=== PATIENT | female | born 1985 | race Caucasian/White ===

== ENCOUNTER 2017-12-06 14:27 | Emergency (ER) | payer OTHER ==
[2017-12-06 14:35] VITALS: BP 132/92; PULSE 82; TEMP 99.3; BMI 32.1
--- NOTE | 2017-12-06 16:02 | PDOC ---
History of Present Illness - General Chief Complaint: Pain, Acute Stated Complaint: SWELLING,LT HAND Time Seen by Provider: 12/06/17 15:42 History Source: Patient Exam Limitations: No Limitations - History of Present Illness Initial Comments: 12/06/17 16:02 pt with ring stuck on her left ring finger for a few weeks Severity: Yes: moderate Extremity Pain Location - Extremity Pain Location Extremity Pain Locations: left: 4th finger Past History - Past Medical History Allergies/Adverse Reactions: Allergies Allergy/AdvReac Type Severity Reaction Status Date / Time No Known Allergies Allergy Verified 12/06/17 14:35 Home Medications: Ambulatory Orders Amoxicillin/Potassium Clav [Augmentin 875-125 Tablet] 1 each PO BID #14 tablet 12/06/17 - Suicide/Smoking/Psychosocial Hx Smoking History: Never smoked Have you smoked in the past 12 months: No Information on smoking cessation initiated: No Hx Alcohol Use: No Drug/Substance Use Hx: No Review of Systems - Review of Systems Able to Perform ROS?: Yes Is the patient limited Georgian proficient: No Constitutional: No: Symptoms Reported *Physical Exam - Vital Signs Last Vital Signs Temp Pulse Resp BP Pulse Ox 99.3 F 82 16 132/92 100 12/06/17 14:33 12/06/17 14:33 12/06/17 14:33 12/06/17 14:33 12/06/17 14:33 - Physical Exam General Appearance: Yes: Nourished, Appropriately Dressed HEENT: positive: EOMI, BRANT Extremity: positive: Normal Capillary Refill, Swelling (left ring finger with stuck yellow band ), Other (pus drainage to the volar surface of the finger at the pip joint from ring cutting into finger) Integumentary: positive: Normal Color, Dry, Warm Neurologic: positive: delivery of shopping news II-XII NML intact, Fully Oriented, Alert, Normal Mood/ Affect, Normal Response, Motor Strength 5/5 Procedures - Consent Consent obtained: Verbal, From Patient (consent to use ring cutter to remove yellow band ring from left finger) - Additional Procedures Progress: 12/06/17 16:11 ring removed with ring cutter Medical Decision Making - Medical Decision Making 12/06/17 16:06 stuck ring on finger for 2 weeks removed with the ring cutter tolerated well nv intact 12/06/17 16:08 *DC/Admit/Observation/Transfer Diagnosis at time of Disposition: Foreign body of finger with infection Qualifiers: Encounter type: initial encounter Qualified Code(s): S60.459A - Superficial foreign body of unspecified finger, initial encounter - Discharge Dispostion Disposition: HOME Condition at time of disposition: Improved - Prescriptions Prescriptions: Amoxicillin/Potassium Clav [Augmentin 875-125 Tablet] 1 each PO BID #14 tablet - Referrals Referrals: Kimberly Ang [Primary Care Provider] - - Patient Instructions Additional Instructions: take the Augmentin as prescribed keep finger clean and dry bandage daily until healed no rings return if worse - Post Discharge Activity
== END 2017-12-06 16:18 | disposition home or self-care (01) ==
LOC: JERFT 14:27
DX: S60.445A External constriction of left ring finger, initial encounter (principal); W49.04XA Ring or other jewelry causing external constriction, initial encounter; Y93.89 Activity, other specified; Y92.018 Other place in single-family (private) house as the place of occurrence of the external cause; Y99.8 Other external cause status
CPT/HCPCS: 99281-25

== ENCOUNTER 2019-09-03 21:13 | Emergency (ER) | payer OTHER ==
--- NOTE | 2019-09-03 21:24 | PDOC ---
Attending Attestation - Resident Resident Name: Kevon Monterroso - ED Attending Attestation I have performed the following: I have examined & evaluated the patient, The case was reviewed & discussed with the resident, I agree w/resident's findings & plan - HPI HPI: 09/03/19 21:22 see resident hpi - Physicial Exam PE: 09/03/19 21:22 see resident exam - Medical Decision Making 09/03/19 21:22 33-year-old female found unarousable on a bench [place] a [place] station, arrives ambulatory with mildly slurred speech with no medical complaints She did states she fell 3 times earlier today Plan for CT scan of the head and cervical spine Fingerstick within normal limits Plan for DC home pending results and reevaluation Discharge - Discharge Information Problems reviewed: Yes Clinical Impression/Diagnosis: Fall - Follow up/Referral - Patient Discharge Instructions - Post Discharge Activity
[2019-09-03 21:28] VITALS: BP 120/83; PULSE 103; TEMP 97.1; BMI 26.6
--- NOTE | 2019-09-03 21:42 | PDOC ---
History of Present Illness - General Stated Complaint: EDP Time Seen by Provider: 09/03/19 21:21 History Source: Patient Exam Limitations: No Limitations - History of Present Illness Initial Comments: 09/03/19 21:24 33 yo female [place] after being found on [place] bench unarousable. Pt states she fell 3 times today, pt uncooperative with further questioning and exam and requests to leave the ED. EMS report pt uncooperative, unable to attain vitals. Pt hand cuffed on arrival, spitting on the ground in the ED. Pt on the phone with her boyfriend who states he is on the way. Pt agrees to have head and neck CT done but refuses any further work up Past History - Medical History Allergies/Adverse Reactions: Allergies Allergy/AdvReac Type Severity Reaction Status Date / Time No Known Allergies Allergy Verified 09/03/19 21:28 Home Medications: Ambulatory Orders Amoxicillin/Potassium Clav [Augmentin 875-125 Tablet] 1 each PO BID #14 tablet 12/06/17 - Psycho-Social/Smoking History Smoking History: Never smoked Have you smoked in the past 12 months: No Review of Systems - Review of Systems Able to Perform ROS?: No (uncooperative) *Physical Exam - Physical Exam General Appearance: Yes: Nourished, Appropriately Dressed. No: Apparent Distress HEENT: positive: EOMI, Symmetrical, Hearing Grossly Normal. negative: Scleral Icterus (R), Scleral Icterus (L), Lesions, [place] Neck: positive: Supple Respiratory/Chest: negative: Respiratory Distress, Accessory Muscle Use, Labored Respiration Cardiovascular: positive: Regular Rhythm, Regular Rate Gastrointestinal/Abdominal: negative: Distended Extremity: positive: Normal Range of Motion Neurologic: positive: blind eyeletter II-XII NML intact, Fully Oriented, Alert, Motor Str ength 06/18 ED Treatment Course - ADDITIONAL ORDERS Additional order review: Laboratory Results 09/03/19 21:18 POC Glucometer 122 09/03/19 21:18 POC Glucometer 122 - RADIOLOGY Radiology Studies Ordered: Category Date Time Status CERVICAL SPINE CT W/O CONTR [CT] Stat CT Scan 09/03/19 21:[address] WITHOUT CONTRAST [CT] Stat CT Scan 09/03/19 21:21 Ordered Medical Decision Making - Medical Decision Making 33 yo female [place] after being found on Park bench unarousable. Pt states she fell 3 times today, pt uncooperative with further questioning and exam and requests to leave the ED. EMS report pt uncooperative, unable to attain vitals. Pt hand cuffed on arrival, spitting on the ground in the ED. Pt on the phone with her boyfriend who states he is on the way. Pt agrees to have head and neck CT done but refuses any further work up vitals stable Condition [address] scan since the pt was uncooperative with staying still. Discussed importance of completing exam with the patient. Pt uses profanity and continues spitting onto the floor. Pt reluctantly agrees to finish scans. After returning to the ED, Security at the bedside on . Pt noted to leave the ED AMA prior to CT results after she receives a call from her Friend Rc who came to pick her up. Pt found in the Shower Attendant seat of her friends car, likely intoxicated (continues to deny drug or alcohol use) CT head and neck results neg for acute path [facility] called back, pt medically stable for DC and [facility] on the scene Pt given strict return precautions Discharge - Discharge Information Problems reviewed: Yes Clinical Impression/Diagnosis: Fall Condition: Stable Disposition: HOME - Admission No - Follow up/Referral - Patient Discharge Instructions Patient Printed Discharge Instructions: How to Prevent Falls Additional Instructions: Please see your Primary Doctor within the next 48 hours. The ER is always open and here to provide you with help whenever you need. If you have persistent episodes of falls, please return for further evaluation. Thank you - Post Discharge Activity Work/Back to School Note: My Personal Safety Plan
== END 2019-09-03 23:20 | disposition home or self-care (01) ==
LOC: JER 21:13
DX: F10.129 Alcohol abuse with intoxication, unspecified (principal)
CPT/HCPCS: 70450-TC; 72125-TC; 82962; 99284-25

== ENCOUNTER 2023-03-09 14:39 | Inpatient (IN) | payer OTHER ==
[2023-03-09 15:03] VITALS: BMI 25.0
[2023-03-09] MEDS ORDERED: MAGNESIUM HYDROX 2400MG/30ML ORAL SUSPENSION 30 ML CUP PO PRN (16:58)
[2023-03-09] MEDS ORDERED: POLYETHYLENE GLYCOL (HEALTHYLAX) 3350 17 GM PACKET PO PRN (16:58)
[2023-03-09] MEDS ORDERED: ONDANSETRON *ODT* 4 MG TABLET SL PRN (16:58)
[2023-03-09] MEDS ORDERED: LOPERAMIDE HCL 2 MG CAPSULE PO PRN (16:58)
[2023-03-09] MEDS ORDERED: IBUPROFEN 400 MG TABLET (FP) PO PRN (16:58)
[2023-03-09] MEDS ORDERED: METHOCARBAMOL 500 MG TABLET PO PRN (16:58)
[2023-03-09] MEDS ORDERED: MAG HYDROX/AL HYDROX/SIMETH 30 ML UNIT-DOSE CUP PO PRN (16:58)
[2023-03-09] MEDS ORDERED: BISMUTH SUBSALICYLATE 524 MG/30 ML PO PRN (16:58)
[2023-03-09] MEDS ORDERED: NALOXONE HCL (KLOXXADO) 8 MG SPRAY NS PRN (16:58)
[2023-03-09] MEDS ORDERED: BENZONATATE 200 MG CAPSULE PO PRN (16:58)
[2023-03-09] MEDS ORDERED: IBUPROFEN 600 MG TABLET (FP) PO PRN (16:58)
[2023-03-09] MEDS ORDERED: methaDONE HCL 10 MG TABLET (FOR DETOX USE ONLY) PO ONE (16:58)
[2023-03-09] MEDS ORDERED: DICYCLOMINE HCL 10 MG CAPSULE PO PRN (16:58)
[2023-03-09] MEDS ORDERED: ACETAMINOPHEN 325 MG TABLET (FP) PO PRN (16:58)
[2023-03-09] MEDS ORDERED: LORazepam 1 MG TABLET PO PRN (16:58)
[2023-03-09] MEDS ORDERED: cloNIDine HCL 0.1 MG TABLET PO PRN (16:58)
[2023-03-09] MEDS ORDERED: BENZOCAINE/MENTHOL (CHLORASEPTIC ) LOZENGE MM PRN (16:58)
[2023-03-09] MEDS ORDERED: NALOXONE HCL 0.4 MG/ML VIAL IM PRN (16:58)
[2023-03-09] MEDS ORDERED: guaiFENesin 600 MG TABLET.ER (FP) PO PRN (16:58)
[2023-03-09] MEDS ORDERED: methaDONE HCL 10 MG TABLET (FOR DETOX USE ONLY) ONE (17:08)
[2023-03-09] MEDS: LORazepam 2 MG TABLET PO SCH ×2 (17:19→22:35)
[2023-03-09] MEDS ORDERED: ALBUTEROL SO4 HFA INHALER IH PRN (18:08)
[2023-03-09] MEDS ORDERED: NICOTINE POLACRILEX 2 MG GUM BUC PRN (18:11)
[2023-03-09] MEDS ORDERED: THIAMINE HCL 100 MG TABLET (FP) PO SCH (22:00)
[2023-03-09] MEDS ORDERED: MELATONIN 5 MG TABLETS PO SCH ×2 (22:00)
[2023-03-09] MEDS: hydrOXYzine PAMOATE 25 MG CAPSULE (FP) PO PRN (22:35)
[2023-03-10] MEDS: LORazepam 2 MG TABLET PO SCH ×2 (05:39→10:12)
[2023-03-10] MEDS: hydrOXYzine PAMOATE 25 MG CAPSULE (FP) PO PRN (05:41)
[2023-03-10 09:27] VITALS: RESP 18
[2023-03-10] MEDS ORDERED: PATIENT'S OWN MEDICATION (NON-FORMULARY) (Sofosbuvir/Velpatasvir [Sofosbuvir-Velpatasvir 4 PO SCH (10:00)
[2023-03-10] MEDS ORDERED: NICOTINE 14 MG/24 HOURS TOPICAL PATCH TD SCH (10:00)
[2023-03-10] MEDS ORDERED: PRENATAL VITAMINS W/ FOLIC ACID TABLET (FP) PO SCH (10:00)
[2023-03-10 10:50] LABS: HEMATOCRIT 37.4 % (32.4-45.2); HEMOGLOBIN 12.6 GM/dL (10.7-15.3); MCH 32.2 pg (25.7-33.7); MCHC 33.6 g/dl (32.0-36.0); MEAN CELL VOLUME 96.1 fl (80-96); MEAN PLT VOLUME 9.3 fl (7.5-11.1); PLATELET COUNT 81 10^3/uL (134-434); RDW 13.8 % (11.6-15.6)
[2023-03-10 10:54] LABS: CHLORIDE 106 mmol/L (98-107); POTASSIUM 3.9 mmol/L (3.5-5.1); SODIUM 138 mmol/L (136-145)
[2023-03-10 11:01] LABS: ALBUMIN 3.1 g/dl (3.4-5.0); ANION GAP 6 mmol/L (4-13); BLOOD UREA NITROGEN 10.4 mg/dL (7-18); CALCIUM 9.2 mg/dL (8.5-10.1); CO2 26 mmol/L (21-32); GLUCOSE,RANDOM 117 mg/dL (74-106)
[2023-03-10 11:04] LABS: CREATININE 0.5 mg/dL (0.55-1.3); SGOT/AST 36 U/L (15-37); SGPT/ALT 30 U/L (13-61)
[2023-03-10 11:05] LABS: TOT PROT 7.9 g/dl (6.4-8.2)
[2023-03-10 11:07] LABS: ALK PHOS 75 U/L (45-117)
[2023-03-10 14:37] VITALS: BP 128/85; PULSE 90; TEMP 98.6
[2023-03-11] MEDS ORDERED: LORazepam 1 MG TABLET PO SCH (05:00)
[2023-03-11] MEDS ORDERED: methaDONE HCL 10 MG TABLET (FOR DETOX USE ONLY) PO ONE (10:00)
[2023-03-12] MEDS ORDERED: LORazepam 0.5 MG TABLET PO PRN
[2023-03-12] MEDS ORDERED: LORazepam 0.5 MG TABLET PO SCH (05:00)
[2023-03-13] MEDS ORDERED: LORazepam 0.5 MG TABLET PO ONE (05:00)
== END 2023-03-10 03:32 | disposition left against medical advice (07) | DRG 770 ==
LOC: YASAS 14:39 → Y3N 16:55
PROVIDERS: ADMIT Allergy & Immunology; ATTEND Allergy & Immunology
PROC: HZ2ZZZZ Detoxification Services for Substance Abuse Treatment (ICD-10-PCS; principal; 2023-03-09)
DX: F11.23 Opioid dependence with withdrawal (principal); F10.230 Alcohol dependence with withdrawal, uncomplicated; F17.210 Nicotine dependence, cigarettes, uncomplicated; F31.9 Bipolar disorder, unspecified; G47.00 Insomnia, unspecified; K74.60 Unspecified cirrhosis of liver; B18.2 Chronic viral hepatitis C
CPT/HCPCS: 36415; 80053; 80307; 81025; 85027; 86780; 87635; 93005; 93010

== ENCOUNTER 2023-03-11 18:20 | Inpatient (IN) | payer OTHER ==
[2023-03-11 18:53] VITALS: BMI 26.4
[2023-03-11] MEDS ORDERED: BENZOCAINE/MENTHOL (CHLORASEPTIC ) LOZENGE MM PRN (19:43)
[2023-03-11] MEDS ORDERED: hydrOXYzine PAMOATE 25 MG CAPSULE (FP) PO PRN (19:43)
[2023-03-11] MEDS ORDERED: ACETAMINOPHEN 325 MG TABLET (FP) PO PRN (19:43)
[2023-03-11] MEDS ORDERED: IBUPROFEN 600 MG TABLET (FP) PO PRN (19:43)
[2023-03-11] MEDS ORDERED: NALOXONE HCL 0.4 MG/ML VIAL IM PRN (19:43)
[2023-03-11] MEDS ORDERED: DICYCLOMINE HCL 10 MG CAPSULE PO PRN (19:43)
[2023-03-11] MEDS ORDERED: BENZONATATE 200 MG CAPSULE PO PRN (19:43)
[2023-03-11] MEDS ORDERED: ONDANSETRON *ODT* 4 MG TABLET SL PRN (19:43)
[2023-03-11] MEDS ORDERED: guaiFENesin 600 MG TABLET.ER (FP) PO PRN (19:43)
[2023-03-11] MEDS ORDERED: MAG HYDROX/AL HYDROX/SIMETH 30 ML UNIT-DOSE CUP PO PRN (19:43)
[2023-03-11] MEDS ORDERED: cloNIDine HCL 0.1 MG TABLET PO PRN (19:43)
[2023-03-11] MEDS ORDERED: IBUPROFEN 400 MG TABLET (FP) PO PRN (19:43)
[2023-03-11] MEDS ORDERED: POLYETHYLENE GLYCOL (HEALTHYLAX) 3350 17 GM PACKET PO PRN (19:43)
[2023-03-11] MEDS ORDERED: LORazepam 1 MG TABLET PO PRN (19:43)
[2023-03-11] MEDS ORDERED: LOPERAMIDE HCL 2 MG CAPSULE PO PRN (19:43)
[2023-03-11] MEDS ORDERED: MAGNESIUM HYDROX 2400MG/30ML ORAL SUSPENSION 30 ML CUP PO PRN (19:43)
[2023-03-11] MEDS ORDERED: NALOXONE HCL (KLOXXADO) 8 MG SPRAY NS PRN (19:43)
[2023-03-11] MEDS ORDERED: BISMUTH SUBSALICYLATE 524 MG/30 ML PO PRN (19:43)
[2023-03-11] MEDS ORDERED: methaDONE HCL 10 MG TABLET (FOR DETOX USE ONLY) PO ONE (20:15)
[2023-03-11] MEDS: METHOCARBAMOL 500 MG TABLET PO PRN (20:49)
[2023-03-11] MEDS ORDERED: MELATONIN 5 MG TABLETS PO SCH (22:00)
[2023-03-11] MEDS: MELATONIN 5 MG TABLETS PO SCH (22:40)
[2023-03-11] MEDS: THIAMINE HCL 100 MG TABLET (FP) PO SCH (22:40)
[2023-03-11] MEDS: LORazepam 2 MG TABLET PO SCH (22:42)
[2023-03-12] MEDS: LORazepam 2 MG TABLET PO SCH ×4 (05:54→22:05)
[2023-03-12] MEDS: PRENATAL VITAMINS W/ FOLIC ACID TABLET (FP) PO SCH (10:24)
[2023-03-12 11:24] LABS: HEMATOCRIT 37.1 % (32.4-45.2); HEMOGLOBIN 12.5 GM/dL (10.7-15.3); MCH 32.8 pg (25.7-33.7); MCHC 33.8 g/dl (32.0-36.0); MEAN PLT VOLUME 9.3 fl (7.5-11.1); PLATELET COUNT 85 10^3/uL (134-434); RBC 3.82 M/mm3 (3.60-5.2); RDW 13.7 % (11.6-15.6)
[2023-03-12 11:26] LABS: WHITE BLOOD COUNT 6.4 K/mm3 (4.0-10.0)
[2023-03-12] MEDS: PATIENT'S OWN MEDICATION (NON-FORMULARY) (Sofosbuvir/Velpatasvir [Sofosbuvir-Velpatasvir 4 PO SCH (12:23)
[2023-03-12] MEDS: NICOTINE 21 MG/24 HOURS TOPICAL PATCH TD SCH (12:33)
[2023-03-12 13:05] LABS: CHLORIDE 108 mmol/L (98-107); POTASSIUM 4.5 mmol/L (3.5-5.1); SODIUM 139 mmol/L (136-145)
[2023-03-12 13:07] LABS: ALBUMIN 3.1 g/dl (3.4-5.0); BLOOD UREA NITROGEN 6.1 mg/dL (7-18); GLUCOSE,RANDOM 108 mg/dL (74-106)
[2023-03-12 13:08] LABS: ANION GAP 8 mmol/L (4-13); CO2 23 mmol/L (21-32)
[2023-03-12 13:10] LABS: CREATININE 0.5 mg/dL (0.55-1.3); SGOT/AST 39 U/L (15-37); SGPT/ALT 34 U/L (13-61)
[2023-03-12 13:12] LABS: TOT PROT 7.8 g/dl (6.4-8.2)
[2023-03-12 13:13] LABS: ALK PHOS 75 U/L (45-117)
[2023-03-12 13:15] LABS: BILIRUBIN,TOTAL 0.7 mg/dL (0.2-1)
[2023-03-12] MEDS: hydrOXYzine PAMOATE 25 MG CAPSULE (FP) PO PRN (17:15)
[2023-03-12] MEDS: MELATONIN 5 MG TABLETS PO SCH (21:53)
[2023-03-12] MEDS: THIAMINE HCL 100 MG TABLET (FP) PO SCH (21:53)
[2023-03-12] MEDS: METHOCARBAMOL 500 MG TABLET PO PRN (21:54)
[2023-03-13] MEDS: LORazepam 1 MG TABLET PO SCH ×4 (05:49→22:20)
[2023-03-13] MEDS: hydrOXYzine PAMOATE 25 MG CAPSULE (FP) PO PRN ×2 (08:26→22:21)
[2023-03-13] MEDS: METHOCARBAMOL 500 MG TABLET PO PRN ×2 (08:26→17:20)
[2023-03-13] MEDS ORDERED: methaDONE HCL 10 MG TABLET (FOR DETOX USE ONLY) PO ONE (10:00)
[2023-03-13] MEDS: PRENATAL VITAMINS W/ FOLIC ACID TABLET (FP) PO SCH (10:45)
[2023-03-13] MEDS: PATIENT'S OWN MEDICATION (NON-FORMULARY) (Sofosbuvir/Velpatasvir [Sofosbuvir-Velpatasvir 4 PO SCH (10:46)
[2023-03-13] MEDS: NICOTINE 21 MG/24 HOURS TOPICAL PATCH TD SCH (10:48)
[2023-03-13] MEDS: MELATONIN 5 MG TABLETS PO SCH (22:21)
[2023-03-13] MEDS: THIAMINE HCL 100 MG TABLET (FP) PO SCH (22:22)
[2023-03-14] MEDS ORDERED: LORazepam 0.5 MG TABLET PO PRN
[2023-03-14] MEDS: LORazepam 0.5 MG TABLET PO SCH ×4 (05:59→23:10)
[2023-03-14] MEDS: PATIENT'S OWN MEDICATION (NON-FORMULARY) (Sofosbuvir/Velpatasvir [Sofosbuvir-Velpatasvir 4 PO SCH (10:21)
[2023-03-14] MEDS: PRENATAL VITAMINS W/ FOLIC ACID TABLET (FP) PO SCH (10:22)
[2023-03-14] MEDS: NICOTINE 21 MG/24 HOURS TOPICAL PATCH TD SCH (10:22)
[2023-03-14] MEDS: hydrOXYzine PAMOATE 50 MG CAPSULE (FP) PO PRN (15:58)
[2023-03-14] MEDS: METHOCARBAMOL 500 MG TABLET PO PRN ×2 (17:47→23:10)
[2023-03-14] MEDS: MELATONIN 5 MG TABLETS PO SCH (22:08)
[2023-03-14] MEDS: THIAMINE HCL 100 MG TABLET (FP) PO SCH (22:08)
[2023-03-15] MEDS ORDERED: LORazepam 0.5 MG TABLET PO ONE ×2 (05:00→11:21)
[2023-03-15] MEDS: PRENATAL VITAMINS W/ FOLIC ACID TABLET (FP) PO SCH (09:49)
[2023-03-15] MEDS: PATIENT'S OWN MEDICATION (NON-FORMULARY) (Sofosbuvir/Velpatasvir [Sofosbuvir-Velpatasvir 4 PO SCH (09:49)
[2023-03-15] MEDS: NICOTINE 21 MG/24 HOURS TOPICAL PATCH TD SCH (09:49)
[2023-03-15] MEDS ORDERED: methaDONE HCL 10 MG TABLET (FOR DETOX USE ONLY) PO ONE (10:00)
[2023-03-15] MEDS: hydrOXYzine PAMOATE 50 MG CAPSULE (FP) PO PRN ×3 (11:37→22:29)
[2023-03-15] MEDS: METHOCARBAMOL 500 MG TABLET PO PRN (15:07)
[2023-03-15] MEDS: THIAMINE HCL 100 MG TABLET (FP) PO SCH (22:28)
[2023-03-15] MEDS: MELATONIN 5 MG TABLETS PO SCH (22:28)
[2023-03-16] MEDS: hydrOXYzine PAMOATE 50 MG CAPSULE (FP) PO PRN (05:35)
[2023-03-16] MEDS: PATIENT'S OWN MEDICATION (NON-FORMULARY) (Sofosbuvir/Velpatasvir [Sofosbuvir-Velpatasvir 4 PO SCH (09:07)
[2023-03-16] MEDS: NICOTINE 21 MG/24 HOURS TOPICAL PATCH TD SCH (09:08)
[2023-03-16] MEDS: PRENATAL VITAMINS W/ FOLIC ACID TABLET (FP) PO SCH (09:09)
[2023-03-16 09:41] VITALS: BP 130/81; PULSE 81; RESP 18; TEMP 97.7
== END 2023-03-16 09:10 | disposition home or self-care (01) | DRG 773 ==
LOC: YASAS 18:20 → Y6N 19:54
PROVIDERS: ADMIT Allergy & Immunology; ATTEND Psychiatry & Neurology Pain Medicine
PROC: HZ2ZZZZ Detoxification Services for Substance Abuse Treatment (ICD-10-PCS; principal; 2023-03-11)
DX: F10.230 Alcohol dependence with withdrawal, uncomplicated (principal); F11.23 Opioid dependence with withdrawal; F17.210 Nicotine dependence, cigarettes, uncomplicated; F19.280 Other psychoactive substance dependence with psychoactive substance-induced anxiety disorder; U07.1 COVID-19; K70.30 Alcoholic cirrhosis of liver without ascites; B18.2 Chronic viral hepatitis C; Z86.59 Personal history of other mental and behavioral disorders
CPT/HCPCS: 36415; 80053; 80307; 81025; 85027; 86780; 87635; 87811

== ENCOUNTER 2023-04-20 12:58 | Emergency (ER) | payer OTHER ==
[2023-04-20 13:37] VITALS: BMI 25.0
[2023-04-20 15:28] LABS: BASO % 0.2 % (0-2.0); EOS % 0.7 % (0-4.5); HEMATOCRIT 37.6 % (32.4-45.2); LYMPH % 21.9 % (8-40); MCH 32.7 pg (25.7-33.7); MCHC 34.4 g/dl (32.0-36.0); MEAN CELL VOLUME 94.9 fl (80-96); MEAN PLT VOLUME 8.5 fl (7.5-11.1); NEUT % 62.2 % (42.8-82.8); PLATELET COUNT 125 10^3/uL (134-434); RBC 3.96 M/mm3 (3.60-5.2); RDW 13.2 % (11.6-15.6); WHITE BLOOD COUNT 5.7 K/mm3 (4.0-10.0)
[2023-04-20 15:47] LABS: CHLORIDE 103 mmol/L (98-107); POTASSIUM 3.8 mmol/L (3.5-5.1); SODIUM 138 mmol/L (136-145)
[2023-04-20 15:50] LABS: ALBUMIN 3.4 g/dl (3.4-5.0); ANION GAP 4 mmol/L (4-13); BLOOD UREA NITROGEN 5.7 mg/dL (7-18); CALCIUM 8.8 mg/dL (8.5-10.1); CO2 31 mmol/L (21-32); GLUCOSE,RANDOM 97 mg/dL (74-106)
[2023-04-20 15:53] LABS: CREATININE 0.5 mg/dL (0.55-1.3); SGOT/AST 63 U/L (15-37); SGPT/ALT 62 U/L (13-61)
[2023-04-20 15:55] LABS: BILIRUBIN,TOTAL 0.7 mg/dL (0.2-1); TOT PROT 8.7 g/dl (6.4-8.2)
[2023-04-20 15:56] LABS: ALK PHOS 73 U/L (45-117)
[2023-04-20] MEDS ORDERED: SULFAMETHOXAZOLE/TRIMETHOPRIM 800MG/160MG D.S. TABLET ONE (16:38)
[2023-04-20] MEDS: SULFAMETHOXAZOLE/TRIMETHOPRIM 800MG/160MG D.S. TABLET PO ONE (16:40)
[2023-04-20 17:17] VITALS: BP 116/78; PULSE 60; RESP 20; TEMP 98.8
[2023-04-20] MEDS ORDERED: NALOXONE (NARCAN) HCL 4 MG/0.1 ML SPRAY NS ONE (17:54)
[2023-04-20] MEDS: NALOXONE (NYS OPIOID OVERDOSE PROGRAM) 4 MG/0.1 ML SPRAY NS ONE (17:59)
== END 2023-04-20 19:13 | disposition home or self-care (01) ==
LOC: JER 12:58
DX: R46.4 Slowness and poor responsiveness (principal); L03.90 Cellulitis, unspecified; F11.920 Opioid use, unspecified with intoxication, uncomplicated
CPT/HCPCS: 36415; 80053; 80307; 84703; 85025; 86140; 87040; 93005; 93010; 99284-25